=== PATIENT | male | born 1940 | race Caucasian/White ===

== ENCOUNTER 2025-06-22 12:00 | Inpatient (IN) | payer MEDICARE, SELFPAY ==
[2025-06-22] VITALS (8 sets, daily range): BP systolic 91–169; BP diastolic 63–93; BMI 21.5; BMI 20.7
--- NOTE | 2025-06-22 11:14 | ED.SKININJ ---
HPI-Injury
General
Chief Complaint: Skin Problem
Source: patient
Exam Limitations: none
Time Seen by Provider: 06/22/25 10:53
Nursing documentation reviewed up to this point in time: agreed with
History of Present Illness-Injury
Initial Injury comments:
84-year-old male with history of BPH, HLD, neuropathy presents for infected right 2nd toe. Saw Staff Accountant Dr. Wilkes last week and has been on Keflex 500 mg BID since, went back to her yesterday and she instructed him to come to ER for evaluation
as not much improvement. Patient has a prescription pad requesting that Dr. Joshi be notified when patient is here. Patient has had no fevers, he feels well otherwise. Minimal pain in the toe. 'Just a twinge now and then.'
Past History
Past History
ED Past Medical History: Hypercholesterolemia and Other (BPH)
Social History
Tobacco: Former smoker
Alcohol: None
Personal:
Living: with family
Review of Systems
Review of Systems
Allergies reviewed?: Yes
All Other Systems: ROS reviewed and negative except as documented in HPI and ROS
Phy Exam
Physical Exam
Physical Exam:
GENERAL: No acute distress. A&Ox3.
CONSTITUTIONAL: Afebrile.
EYES: clear, conjunctivae normal
ENMT: moist mucus membranes, Pharynx nl
RESPIRATORY: Regular respirations, nonlabored, lungs clear.
CARDIOVASCULAR: Regular rate and rhythm, + murmur, no rubs.
GI: Soft, nontender, normal BS
MUSCULOSKELETAL: Right second toe is flaky, has a thick onychomycosis of the nail, mildly erythematous dry flaky scab on tip. The 3rd toe has minimal erythema. moves with ease. Well perfused.
SKIN: Warm, dry, pink
PSYCH: Normal mood and affect. Well kept, interactive and appropriate
NEUROLOGIC: Awake, alert and oriented. No focal neurological deficits
Course
Orders/Labs/Results
Orders:
Orders
06/22/25 Lunch
Regular
At Your Request: Full Participation
06/22/25 10:11
Foot, Right 3 View [CR Foot - Right Min 3 Views] Urgent
Comment: attention 2nd toe r/o osteo
Reason For Exam: pain, redness
06/22/25 11:49
Complete Blood Count/With Diff Urgent
Comprehensive Metabolic Panel Urgent
06/22/25 11:51
Admit/Transfer Patient As Directed
Co-Sign Provider:
Level of Care: Inpatient admission
Assign to:: Medical/Surgical
Physician / Group: Dr Brizuela
Diagnosis: Cellulitis toe possible OM
Reason for Hospitalization: Cellulitis toe possible OM
Expected length of stay greater than two midnights?: Yes
ELOS- Estimated Length of Stay in days: 2
I certify the patient meets the requirements for IP care: Yes
PRN Pain Medication Management As Directed
May give lesser potent ordered pain med per pt: Yes
preference::
Protocol:: Medication orders for pain may be administered in a
manner that supports deferring to patient preference
when the pt is:
- Requesting an ordered lesser potent pain medication.
Least to most potent pain medications are defined
as: acetaminophen < NSAID < tramadol < opioids
(morphine, oxycodone, hydromorphone).
- Requesting a lesser dose of the same medication IF
ORDERED.
- Requesting a less intrusive route of administration
if both routes are prescribed by the provider (PO <
IV).
06/22/25 11:52
Code Status As Directed
Resuscitation Status: Full Code
06/22/25 11:53
PODIATRY CONSULT Routine
Consulting Provider: Jonn Bush
Was physician already notified: Yes
Reason for consult: Toe infection r/o OM
06/22/25 15:07
Acetaminophen [Tylenol] 650 mg PO Q4HPRN PRN
Bisacodyl [Dulcolax] 10 mg RECTAL [id number] PRN
Docusate W/Senna [Senokot-S] 1 tablet PO BIDPRN PRN
Ketorolac [Toradol] 10 mg IV Q6HPRN PRN
Morphine Sulfate 2 mg IV Q4HPRN PRN
Polyethylene Glycol Powder [Miralax] 17 grams PO DAILYPRN PRN
06/22/25 15:07
Activity As Directed
Activity Level: Out of Bed-Early Mobility
Vital Signs As Directed
Frequency: Per unit guidelines
DX Deep Vein Thrombosis Video Routine
06/22/25 18:00
Enoxaparin Sodium [Lovenox] 40 mg SC QPM
06/23/25 06:00
Basic Metabolic Panel IN AM
Complete Blood Count/With Diff IN AM
Abnormal Lab Results
06/22/25
11:49
WBC 11.8 H 10^3/uL
(4.8-10.8)
RBC 4.16 L 10^6/uL
(4.70-6.10)
Hgb 12.9 L g/dL
(13.0-18.0)
Hct 38.6 L %
(39.0-52.0)
Abs Immat Gran (auto) 0.1 H 10^3/uL
(0-0.05)
Absolute Neuts (auto) 7.9 H 10^3/uL
(1.4-6.5)
Absolute Monos (auto) 0.8 H 10^3/uL
(0.1-0.6)
Absolute Eos (auto) 0.8 H 10^3/uL
(0-0.7)
Immature Gran % 0.6 H %
(0-0.5)
Lymphocytes % 17.8 L %
(20.5-51.1)
Eosinophils % 7.0 H %
(0-6)
BUN 27 H mg/dl
(9-20)
06/22/25 11:49
06/22/25 11:49
Vital Signs
Initial and Last Documented VS:
Initial Vital Signs
Temp Pulse Resp BP Pulse Ox
97.5 F 68 18 169/79 96
06/22/25 10:04 06/22/25 10:04 06/22/25 10:04 06/22/25 10:04 06/22/25 10:04
Last Documented Vital Signs
Temp Pulse Resp BP Pulse Ox
98.7 F 64 17 169/82 99
06/22/25 15:58 06/22/25 15:58 06/22/25 15:58 06/22/25 15:58 06/22/25 15:58
MDM/Problems Addressed
Differential Diagnosis Includes:
Cellulitis, osteomyelitis
MDM/Problems Addressed:
84-year-old male with history of BPH, HLD, neuropathy presents for infected right 2nd toe. Saw Staff Accountant Dr. Wilkes last week and has been on Keflex 500 mg BID since, went back to her yesterday and she instructed him to come to ER for evaluation
as not much improvement. Patient has a prescription pad requesting that Dr. Joshi be notified when patient is here. Patient has had no fevers, he feels well otherwise. Minimal pain in the toe. 'Just a twinge now and then.'
Foot x-ray radiology report read: FINDINGS/IMPRESSION:
Osseous irregularity at the tuft of the second distal phalanx raising concern for acute osteomyelitis in the appropriate clinical setting. Soft tissue swelling about the distal second toe.
No acute fracture or dislocation. Mild joint space narrowing of the first metatarsophalangeal joint, and throughout the interphalangeal joints. Minor hallux valgus. Small plantar calcaneal enthesophyte.
11:[address] Bethesda, pictures sent to him for review, discussed x-ray result, he would like patient admitted, vancomycin, MRI
Hospitalist notified of admission
*Pulse Oximetry
SaO2: 96
Oxygen Mode of Delivery: Room air
Patient hypoxic: not evaluated
*Critical Care Note
Total Time (30-74mins, 75-104mins- exclusive of procedures): Not Applicable
ED Attending Note
-
Portions of this chart may have been created with voice recognition software.� Occasional wrong word or��sound alike� substitutions may have occurred due to the inherent limitations of voice recognition software.
Discharge Plan
Departure
Patient Disposition: Admit
Date of Disposition: 06/22/25
Time of Disposition: 11:44
Admit to: Med/Surg
Presentation/result/management discussed w/ accepting MD/DO: Hospitalist
Condition: Good
Discharge Problem:
Cellulitis of second toe, right
Interventions
Interventions:
*General Assessment Last Done: 06/22/25 10:04
*Neglect/Abuse Screening Last Done: 06/22/25 11:46
*ED Influenza Vaccine History Last Done: 06/22/25 11:46
*Nursing Disposition Last Done: 06/22/25 14:58
ED-Skin Assessment Last Done: 06/22/25 11:46
Discharge Date and Time
Discharge Date/Time: 06/22/25 14:58
--- NOTE | 2025-06-22 11:49 | HPS.HSE ---
Family Physician
-
Family Physician: Alessandro Kohli MD
Chief Complaint
-
Toe
History of Present Illness
Patient 84 years old male with history of hyperlipidemia, peripheral neuropathy, BPH, prediabetes, presented to the hospital with worsening infection of the right second toe. Patient has seen rn chronic as outpatient and he has been treated with
Keflex without significant improvement went back to see rn chronic yesterday and recommended to come to the ER for further evaluation. Patient denies any fevers or chills. He does have increased amount of pain and erythema for over 1 week. Denies
any chest pain or shortness of breath. Denies any nausea vomiting or diarrhea. He had an x-ray of the right foot showing some concerning issues for osteomyelitis. He was referred to hospitalist service for further evaluation.
Medical History
Past Medical History
Past Medical History: Reports Other (Hyperlipidemia, peripheral neuropathy, BPH)
Past Surgical History: Reports None
Social History
Tobacco: Former Smoker
Alcohol: None
Drug: None
Family History
Family History: Not pertinent
Allergies / Home Medications
Allergies reflects when Allergies were last updated in [facility].
Home Medications with original date entered in [facility]
Allergy/Medication List:
Allergies
Allergy/AdvReac Type Severity Reaction Status Date / Time
No Known Allergies Allergy Unverified 06/22/25 10:08
Home Medications
atorvastatin 10 mg tablet 10 mg PO DAILY 06/22/25
doxazosin 4 mg tablet 4 mg PO HS 06/22/25
Review of Systems
-
A 12 point ROS was completed and negative except as noted: Yes
Physical Exam
Vital Signs
Vital Signs
Temp Pulse Resp BP Pulse Ox
97.5 F 68 18 169/79 96
06/22/25 10:04 06/22/25 10:04 06/22/25 10:04 06/22/25 10:04 06/22/25 11:15
Physical exam:
General: Acutely ill
HEENT: Normocephalic, Atraumatic and Moist Mucous Membranes
Respiratory: Clear to Auscultation; Negative Wheezes, Rales or Rhonchi
Cardiac: Regular Rhythm and S1/S2
GI: Soft, Nontender and Nondistended
Musculoskeletal: No Clubbing, No Cyanosis and No Edema. Edema and erythema second toe right foot associated with tenderness.
Neuro: Awake, Alert and Oriented, no neurological deficit
Psych: Calm
Physical Exam
General: Other
Data Reviewed
-
Diagnostic Radiology: Image Personally Visualized and interpreted
Lab Data: Labs Reviewed by me
Impression/Plan
-
IMPRESSION:
84 yo HX HLD, BPH, neuropathy, with infected right 2nd toe not improving after 1 week on Keflex. Patient with worsening cellulitis of the right second toe, concerning for osteomyelitis as well. Patient will need to be during the hospital otherwise
at increased risk of morbidity mortality.
PLAN:
Right second toe cellulitis, rule out osteomyelitis:
IV antibiotics, IV vancomycin
Pain control, Tylenol, Toradol, and morphine as needed
Podiatry consult
Plan for MRI of the right foot
Hyperlipidemia:
Continue statins
BPH:
Continue doxazosin
Check postvoid residual
Prediabetes:
Insulin sliding scale for now
Update hemoglobin A1c
DVT prophylaxis:
Lovenox SQ
CODE STATUS:
Full code
Time spent 75 minutes
[2025-06-22 12:14] LABS: Hematocrit 38.6 % (39.0-52.0); Hemoglobin 12.9 g/dL (13.0-18.0); Mean Corp Hgb Conc. 33.4 g/dL (33.0-37.0); Mean Corpuscular Volume 92.8 fL (80.0-94.0); Nucleated Red Blood Cells % 0 % (-); Platelet Count 181 10^3/uL (130-400); Red Cell Dist. Width 12.8 % (11.5-14.5)
--- NOTE | 2025-06-22 12:25 | PHA.VAN.IN ---
Assessment
- Assessment
Renal Function: Unknown baseline
AUC Dosing Plan
- Dosing Variables
Dosing Weight (kg): 68
Dosing CrCl (ml/min): 53
Vd coefficient (L/kg): 0.7
- Empiric Dosing
Initial / Loading Dose: 1500mg - 06/22 12:46
Maintenance Regimen: Vanc 1000mg Q24H starting 06/23 0600
Estimated AUC (mcg*h/mL): 445
Estimated Peak (mcg*h/mL): 30.6
Estimated Trough (mcg/ml): 10
Estimated Half Life (H): 14.3
- Monitoring
No levels ordered at this time: consider levels in next few days
Pharmacokinetics Vancomycin I
- -
Patient Age: 84
Patient Sex: Male
Vancomycin Day #: 1
Indication: Skin And Soft Tissue
Requesting Provider: Charly Brizuela
Pertinent Antimicrobial Allergies:
NKDA
Height / Weight:
Height 5 ft 10 in
Actual Weight 67.9 kg
- Vital Signs / Lab Results
Temp Pulse Resp BP Pulse Ox
97.5 F 68 18 169/79 96
06/22/25 10:04 06/22/25 10:04 06/22/25 10:04 06/22/25 10:04 06/22/25 11:15
Lab Results - Hematology
06/22/25
11:49
WBC 11.8 H
--- NOTE | 2025-06-22 12:29 | CM ---
CM reviewed chart and orders. Met with patient his Carleen at ED bedside.
Lives in a 2 story home with . No DEE DEE 1 st floor set up
Independent, ambulating without any issues, going [facility] twice a week for balance
Drives
DME none
PCP Dr. Alessandro Kohli
RX plan yes
Pharmacy [facility] on [facility]
no hx of VN nor SNF
DCP is to return back home vs home with outpt PT as needed
CM will continue to follow up with dcp needs
[2025-06-22] MEDS: VANCOCIN 530 MG IV (12:46)
[2025-06-22 12:47] LABS: ALT (SGPT) 24 U/L (0-50); AST (SGOT) 28 U/L (17-59); Albumin 4.1 g/dl (3.5-5.0); Alkaline Phosphatase 77 U/L (38-126); Blood Urea Nitrogen 27 mg/dl (9-20); Calcium 9.4 mg/dl (8.4-10.2); Carbon Dioxide 30 mmol/L (22-30); Chloride 104 mmol/L (98-107); Estimated Creatinine Clearance 53 ml/min; Glucose 80 mg/dl (70-99); Potassium 4.6 mmol/L (3.5-5.1); Sodium 140 mmol/L (135-145); eGFR > 60.00
[2025-06-22 13:01] LABS: Total Protein 6.8 g/dl (6.3-8.2)
--- NOTE | 2025-06-22 15:30 | W.PN.UPDATE ---
Update Note
Progress Note Update
84M concern for OM 2nd toe
- tentative plan for OR tomorrow - 2nd toe amputation, pending MRI results
- NPO midnight tonight
- continue iv abx
- NWB RLE
- encourage elevation 2-3 pillows
- full consult note to follow
[2025-06-22 16:13] LABS: Glucose - Point of Care 103 mg/dl (70-99)
--- NOTE | 2025-06-22 16:40 | PTCARENOTE ---
Pt receiving Vancomycin IV from ED when admitted at 1548. At approximately 1643, called into pt's room. Pt noted to be red on his forehead, face and chest and stated he was itching. Vancomycin immediately stopped and attending and cross coverage
doctors(Dr. Brizuela and Dr. Dior) made aware. Pt given Benadryl 50mg IV x 1 and Vancomycin added as an allergy for the patient. Care ongoing.
--- NOTE | 2025-06-22 16:54 | W.PN.UPDATE ---
Addendum entered and electronically signed by Nanette Dior MD 06/22/25 16:59:
notified by RN that primary attending will reassess in AM. Will hold off Ancef initiation at this time. patient is nontoxic appearing with stable vital signs.
Original Note:
Update Note
Progress Note Update
patient with redness and itching on his head/chest from IV Vanco - Vanco stopped. switched to IV Ancef. Prn Benadryl
[2025-06-22] MEDS: BENADRYL 50 MG IV (17:07)
[2025-06-22] MEDS: LOVENOX 40 MG SC (17:08)
[2025-06-22 21:17] LABS: Glucose - Point of Care 104 mg/dl (70-99)
[2025-06-22] MEDS: CARDURA 4 MG PO (21:25)
[2025-06-23 00:32] LABS: Glucose - Point of Care 84 mg/dl (70-99)
--- NOTE | 2025-06-23 02:28 | DOWNTIME ---
There was a [employer] Downtime on 06/23/2025 from 0100 to 06/23/2025 at 0215. Downtime documentation of patient's care, including medication administrations, has been reconciled in the electronic record per guidelines. Refer to the
patient's paper chart under the miscellaneous tab to see printed paper medication records and downtime forms.
[2025-06-23 06:21] LABS: Glucose - Point of Care 98 mg/dl (70-99)
[2025-06-23 07:55] VITALS: BP 128/68
[2025-06-23 07:55] LABS: Hematocrit 41.5 % (39.0-52.0); Hemoglobin 13.2 g/dL (13.0-18.0); Mean Corp Hgb Conc. 31.8 g/dL (33.0-37.0); Mean Corpuscular Volume 96.7 fL (80.0-94.0); Nucleated Red Blood Cells % 0 % (-); Platelet Count 181 10^3/uL (130-400); Red Cell Dist. Width 12.8 % (11.5-14.5)
[2025-06-23 08:39] LABS: Glycohemoglobin (HgbA1c) 6.1 % (4.0-5.6)
--- NOTE | 2025-06-23 08:39 | W.PN.HOSP.TC ---
Today's Communication/Plan
-
Antibiotics. MRI R Foot
Assessment / Plan
Assessment / Plan
Physical exam:
General: Acutely ill
HEENT: Normocephalic, Atraumatic and Moist Mucous Membranes
Respiratory: Clear to Auscultation; Negative Wheezes, Rales or Rhonchi
Cardiac: Regular Rhythm and S1/S2
GI: Soft, Nontender and Nondistended
Musculoskeletal: No Clubbing, No Cyanosis and No Edema. Edema and erythema second toe right foot associated with tenderness.
Neuro: Awake, Alert and Oriented, no neurological deficit
Psych: Calm
A/P:
Right second toe cellulitis, rule out osteomyelitis:
IV antibiotics, IV vancomycin-had reaction yesterday-see below
Pain control, Tylenol, Toradol, and morphine as needed
Podiatry consult
Plan for MRI of the right foot-still pending
Podiatry recommended to keep n.p.o. for possible procedure
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
Benadryl x 1 today and restart vancomycin at a slower rate today-discussed with attending RN, discussed with patient, and discussed with pharmacy. If he does well no need for further Benadryl but only modification of rate of antibiotic to be given.
Unlikely this reaction to keep him from receiving vancomycin--> will continue to monitor.
Hyperlipidemia:
Continue statins
BPH:
Continue doxazosin
Check postvoid residual
Prediabetes:
Insulin sliding scale for now
Update hemoglobin A1c
DVT prophylaxis:
Lovenox SQ
CODE STATUS:
Full code
Total time spent on today's encounter was 55 minutes which included time spent in counseling the patient/family regarding diagnosis and treatment plan as listed above, goals of care, and symptom management. Case was discussed with nursing staff,
specialists, and care coordinators/case management. All labs and imaging personally reviewed by me. Remainder the time spent in detailed review of previous records, lab data, imaging, and other medical provider documentation.
Anticipated Discharge: 24 - 48 hours
Subjective/Interval History
-
Date of Service: June 23, 2025
Yesterday developed significant rash but no shortness of breath or tongue swelling or hypotension. Foot with some discomfort. Remains afebrile
Objective Data
-
Labs:
Laboratory Results
06/23/25
07:28
WBC 9.2
Hgb 13.2
Hct 41.5
Plt Count 181
Sodium Pending
Potassium Pending
Chloride Pending
Carbon Dioxide Pending
BUN Pending
Creatinine Pending
Glucose Pending
Calcium Pending
Vital Signs:
Vital Signs
Temp Pulse Resp BP Pulse Ox
97 F 73 20 168/93 97
06/22/25 23:11 06/22/25 23:11 06/22/25 23:11 06/22/25 23:11 06/22/25 23:11
[2025-06-23] MEDS: LIPITOR 10 MG PO (08:54)
[2025-06-23 08:57] LABS: Blood Urea Nitrogen 23 mg/dl (9-20); Calcium 8.7 mg/dl (8.4-10.2); Carbon Dioxide 31 mmol/L (22-30); Chloride 105 mmol/L (98-107); Estimated Creatinine Clearance 46 ml/min; Glucose 92 mg/dl (70-99); Potassium 5.0 mmol/L (3.5-5.1); Sodium 138 mmol/L (135-145); eGFR > 60.00
--- NOTE | 2025-06-23 09:26 | PHA.VAN.FU ---
Vancomycin Assessment / Plan
- Assessment
Renal Function: SCR Increasing (slight increase 1--> 1.1)
WBC's are: WNL
In the past 24 hrs, patient has been: Afebrile
- Dosing Plan
Continue: Vanc 1000mg Q24H - infuse over 2 hours (< 10mg/min)
Loading dose infusion stopped yesterday due to infusion reaction. Unclear how much of dose patient received. Will start with maintenance dosing today.
- Monitoring Plan
No level(s) ordered at this time: consider levels in next few days
- Follow Up
Pharmacy will continue to follow.
Vancomycin Follow UP
- -
Patient Age: 84
Patient Sex: Male
Vancomycin Day #: 2
Indication: Skin And Soft Tissue
Requesting Provider: Charly Brizuela
Pertinent Antimicrobial Allergies:
NKDA
Height / Weight:
Height 5 ft 10 in
Actual Weight 65.516 kg
Pertinent Past Medical History: vancomycin infusion reaction
- Vital Signs / Lab Results
Temp Pulse Resp BP Pulse Ox
97.6 F 73 16 128/68 95
06/23/25 07:55 06/23/25 07:55 06/23/25 07:55 06/23/25 07:55 06/23/25 07:55
Lab Results - Hematology
06/22/25 06/23/25
11:49 07:28
WBC 11.8 H 9.2
Lab Results - Chemistry
06/22/25 06/23/25
11:49 07:28
BUN 27 H 23 H
Creatinine 1.0 1.1
Estimated Creat Clear 53 46
Albumin 4.1
[2025-06-23] MEDS: BENADRYL 50 MG IV (10:25)
[2025-06-23] MEDS: VANCOCIN 200 IV (11:04)
--- NOTE | 2025-06-23 11:12 | CM ---
CM reviewed chart, patient seen bedside.
Patient for tentative OR for second toe amputation.
Continue IV antibiotics.
Patient will require PT/OT evals post OR
CM will continue to follow for all d/c planning needs.
Plan; home with , needs dependent on PT/OT evals post OR
[2025-06-23 12:33] LABS: Glucose - Point of Care 108 mg/dl (70-99)
--- NOTE | 2025-06-23 12:45 | CON.SURG ---
Surgical Consultation
-
Chief Complaint
-
Right 2nd toe
History of Present Illness
Patient 84 years old male with history of hyperlipidemia, peripheral neuropathy, BPH, prediabetes, presented to the hospital with worsening infection of the right second toe. Patient has seen lay health advocate as outpatient and he has been treated with
Keflex without significant improvement went back to see lay health advocate yesterday and recommended to come to the ER for further evaluation. Patient denies any fevers or chills. He does have increased amount of pain and erythema for over 1 week. Denies
any chest pain or shortness of breath. Denies any nausea vomiting or diarrhea. He had an x-ray of the right foot showing some concerning issues for osteomyelitis. He was referred to hospitalist service for further evaluation.
Medical History
Past Medical History
Past Medical History: Reports Other (Hyperlipidemia, peripheral neuropathy, BPH)
Past Surgical History: Reports None
Social History
Tobacco: Former Smoker
Alcohol: None
Drug: None
Family History
Family History: Not pertinent
Allergies / Home Medications
Allergies reflects when Allergies were last updated in [facility].
Home Medications with original date entered in [facility]
Allergy/Medication List:
Allergies
Allergy/AdvReac Type Severity Reaction Status Date / Time
No Known Allergies Allergy Unverified 06/22/25 10:08
Home Medications
atorvastatin 10 mg tablet 10 mg PO DAILY 06/22/25
doxazosin 4 mg tablet 4 mg PO HS 06/22/25
Review of Systems
-
A 12 point ROS was completed and negative except as noted: Yes
Physical Exam
Vital Signs
Vital Signs
Temp Pulse Resp BP Pulse Ox
97.5 F 68 18 169/79 96
06/22/25 10:04 06/22/25 10:04 06/22/25 10:04 06/22/25 10:04 06/22/25 11:15
Physical exam:
General: Acutely ill
HEENT: Normocephalic, Atraumatic and Moist Mucous Membranes
Respiratory: Clear to Auscultation; Negative Wheezes, Rales or Rhonchi
Cardiac: Regular Rhythm and S1/S2
GI: Soft, Nontender and Nondistended
Musculoskeletal: No Clubbing, No Cyanosis and No Edema. Edema and erythema second toe right foot associated with tenderness.
Neuro: Awake, Alert and Oriented, no neurological deficit
Psych: Calm
Physical Exam
General: Other
RLE Exam
-DP/PT pulses 2/4, capillary refill < 3 seconds
-Left 2nd toe erythema and edema with no obvious open wounds, no vega purulence crepitus or fluctuance
Data Reviewed
-
Diagnostic Radiology: Image Personally Visualized and interpreted
Lab Data: Labs Reviewed by me
Impression/Plan
-
IMPRESSION:
84 yo HX HLD, BPH, neuropathy, with infected right 2nd toe not improving after 1 week on Keflex. Patient with worsening cellulitis of the right second toe, concerning for osteomyelitis
-Left 2nd toe concern for osteomyelitis clinically and radiographically
-Patient has failed oral antibiotics
-Recommend IV antibiotics and await results of right foot MRI for further evaluation and treatment options
-Heel WB to right foot in a surgical shoe
--- NOTE | 2025-06-23 12:57 | W.PN.UPDATE ---
Update Note
Progress Note Update
84M concern for OM R 2nd toe, faint pedal pulse
- tentative plan for OR tomorrow() - 2nd toe amputation, pending MRI results
- NPO midnight tonight
- resume diet today
- NIVS ordered
- continue iv abx
- NWB RLE
- encourage elevation 2-3 pillows
- will monitor while inpatient
[2025-06-23 14:50] LABS: Glucose - Point of Care 82 mg/dl (70-99)
[2025-06-23 15:35] VITALS: BP 120/67
[2025-06-23 17:34] LABS: Glucose - Point of Care 143 mg/dl (70-99)
[2025-06-23] MEDS: TYLENOL 650 MG PO (17:57)
[2025-06-23] MEDS: LOVENOX 40 MG SC (17:58)
[2025-06-23 21:17] LABS: Glucose - Point of Care 110 mg/dl (70-99)
[2025-06-23] MEDS: CARDURA 4 MG PO (22:22)
[2025-06-24] MEDS: VANCOCIN IV (06:27)
[2025-06-24 07:00] VITALS: BP 118/72
[2025-06-24] MEDS: LIPITOR 10 MG PO (07:47)
[2025-06-24] MEDS: VANCOCIN 200 IV (07:48)
[2025-06-24 07:53] LABS: Glucose - Point of Care 115 mg/dl (70-99)
[2025-06-24 08:39] LABS: Hematocrit 42.8 % (39.0-52.0); Hemoglobin 13.8 g/dL (13.0-18.0); Mean Corp Hgb Conc. 32.2 g/dL (33.0-37.0); Mean Corpuscular Volume 96.0 fL (80.0-94.0); Nucleated Red Blood Cells % 0 % (-); Platelet Count 197 10^3/uL (130-400); Red Cell Dist. Width 12.9 % (11.5-14.5)
[2025-06-24 09:28] LABS: Blood Urea Nitrogen 24 mg/dl (9-20); Calcium 9.1 mg/dl (8.4-10.2); Carbon Dioxide 26 mmol/L (22-30); Chloride 104 mmol/L (98-107); Estimated Creatinine Clearance 42 ml/min; Glucose 113 mg/dl (70-99); Potassium 4.5 mmol/L (3.5-5.1); Sodium 134 mmol/L (135-145); eGFR 59.63
--- NOTE | 2025-06-24 11:08 | W.PN.HOSP.TC ---
Today's Communication/Plan
-
IV antibiotics. KARTHIKEYAN. Podiatry reeval
Assessment / Plan
Assessment / Plan
Physical exam:
General: Acutely ill
HEENT: Normocephalic, Atraumatic and Moist Mucous Membranes
Respiratory: Clear to Auscultation; Negative Wheezes, Rales or Rhonchi
Cardiac: Regular Rhythm and S1/S2
GI: Soft, Nontender and Nondistended
Musculoskeletal: No Clubbing, No Cyanosis and No Edema. Edema and erythema second toe right foot associated with tenderness.
Neuro: Awake, Alert and Oriented, no neurological deficit
Psych: Calm
A/P:
Right second toe cellulitis, rule out osteomyelitis:
IV antibiotics, IV vancomycin-tolerating well
Pain control, Tylenol, Toradol, and morphine as needed
Podiatry consult-discussed with podiatry and possible amputation pending KARTHIKEYAN test.
MRI shows evidence of osteomyelitis
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
Restarted vancomycin at a slower rate and tolerating well--> continue IV vancomycin for now.
Hyperlipidemia:
Continue statins
BPH:
Continue doxazosin
Check postvoid residual
Prediabetes:
Insulin sliding scale for now
Update hemoglobin A1c and it is 6.1
DVT prophylaxis:
Lovenox SQ
CODE STATUS:
Full code
Total time spent on today's encounter was 55 minutes which included time spent in counseling the patient/family regarding diagnosis and treatment plan as listed above, goals of care, and symptom management. Case was discussed with nursing staff,
specialists, and care coordinators/case management. All labs and imaging personally reviewed by me. Remainder the time spent in detailed review of previous records, lab data, imaging, and other medical provider documentation.
Anticipated Discharge: 24 - 48 hours
Subjective/Interval History
-
Date of Service: June 24, 2025
Foot discomfort. No nausea vomiting diarrhea. Afebrile.
Objective Data
-
Labs:
Laboratory Results
06/24/25
07:49
WBC 9.8
Hgb 13.8
Hct 42.8
Plt Count 197
Sodium 134 L
Potassium 4.5
Chloride 104
Carbon Dioxide 26
BUN 24 H
Creatinine 1.2
Glucose 113 H
Calcium 9.1
Vital Signs:
Vital Signs
Temp Pulse Resp BP Pulse Ox
97.6 F 76 15 118/72 95
06/24/25 07:00 06/24/25 07:00 06/24/25 07:00 06/24/25 07:00 06/24/25 07:00
I&O
06/23/25 06/24/25 06/25/25
06:59 06:59 06:59
Intake Total 1020 / 1020
Balance 1020 / 1020
--- NOTE | 2025-06-24 11:34 | PHA.VAN.FU ---
Vancomycin Assessment / Plan
- Assessment
Renal Function: SCR Increasing (slight increasing trend)
WBC's are: WNL
In the past 24 hrs, patient has been: Afebrile
- Dosing Plan
Continue: Vanc 1000mg Q24H
- Monitoring Plan
No level(s) ordered at this time: consider levels in next few days
- Follow Up
Pharmacy will continue to follow.
Vancomycin Follow UP
- -
Patient Age: 84
Patient Sex: Male
Vancomycin Day #: 3
Indication: Skin And Soft Tissue
Requesting Provider: Charly Brizuela
Pertinent Antimicrobial Allergies:
NKDA
Height / Weight:
Height 5 ft 10 in
Actual Weight 65.516 kg
Pertinent Past Medical History: vancomycin infusion reaction
- Vital Signs / Lab Results
Temp Pulse Resp BP Pulse Ox
97.6 F 76 15 118/72 95
06/24/25 07:00 06/24/25 07:00 06/24/25 07:00 06/24/25 07:00 06/24/25 07:00
Lab Results - Hematology
06/22/25 06/23/25 06/24/25
11:49 07:28 07:49
WBC 11.8 H 9.2 9.8
Lab Results - Chemistry
06/22/25 06/23/25 06/24/25
11:49 07:28 07:49
BUN 27 H 23 H 24 H
Creatinine 1.0 1.1 1.2
Estimated Creat Clear 53 46 42
Albumin 4.1
[2025-06-24 12:45] LABS: Glucose - Point of Care 101 mg/dl (70-99)
[2025-06-24 15:35] VITALS: BP 117/58
[2025-06-24 17:18] LABS: Glucose - Point of Care 177 mg/dl (70-99)
--- NOTE | 2025-06-24 17:18 | CM ---
Possible toe amputation tomorrow. Will follow for DC needs post-op
Plan: TBD
--- NOTE | 2025-06-24 17:42 | W.PN.SURGUPD ---
Surgical Update
Surgical Update
84 yo M with 2nd toe infection
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
-KARTHIKEYAN/PVRs within normal limits
-Please make NPO after midnight
-Plan for OR tomorrow
[2025-06-24] MEDS: LOVENOX 40 MG SC (17:58)
[2025-06-24 21:28] LABS: Glucose - Point of Care 97 mg/dl (70-99)
[2025-06-24] MEDS: CARDURA 4 MG PO (23:08)
[2025-06-24 23:33] VITALS: BP 132/75
[2025-06-25 05:12] LABS: Glucose - Point of Care 108 mg/dl (70-99)
[2025-06-25] MEDS: VANCOCIN 200 IV (05:34)
[2025-06-25 07:17] VITALS: BP 126/64
[2025-06-25 08:37] LABS: Hematocrit 38.9 % (39.0-52.0); Hemoglobin 13.0 g/dL (13.0-18.0); Mean Corp Hgb Conc. 33.4 g/dL (33.0-37.0); Mean Corpuscular Volume 93.3 fL (80.0-94.0); Nucleated Red Blood Cells % 0 % (-); Platelet Count 176 10^3/uL (130-400); Red Cell Dist. Width 12.8 % (11.5-14.5)
[2025-06-25 08:54] LABS: Blood Urea Nitrogen 24 mg/dl (9-20); Calcium 8.7 mg/dl (8.4-10.2); Carbon Dioxide 26 mmol/L (22-30); Chloride 105 mmol/L (98-107); Estimated Creatinine Clearance 46 ml/min; Glucose 114 mg/dl (70-99); Potassium 4.2 mmol/L (3.5-5.1); Sodium 137 mmol/L (135-145); eGFR > 60.00
--- NOTE | 2025-06-25 09:01 | PHA.VAN.FU ---
Vancomycin Assessment / Plan
- Assessment
Renal Function: Stable
WBC's are: WNL
In the past 24 hrs, patient has been: Afebrile
- Dosing Plan
Continue: Vanc 1000mg Q24H
- Monitoring Plan
No level(s) ordered at this time: consider levels in next few days
- Follow Up
Pharmacy will continue to follow.
Vancomycin Follow UP
- -
Patient Age: 84
Patient Sex: Male
Vancomycin Day #: 4
Indication: Skin And Soft Tissue
Requesting Provider: Charly Brizuela
Pertinent Antimicrobial Allergies:
NKDA
Height / Weight:
Height 5 ft 10 in
Actual Weight 65.516 kg
Pertinent Past Medical History: vancomycin infusion reaction
- Vital Signs / Lab Results
Temp Pulse Resp BP Pulse Ox
97.4 F 74 18 126/64 94
06/25/25 07:17 06/25/25 07:17 06/25/25 07:17 06/25/25 07:17 06/25/25 07:17
Lab Results - Hematology
06/22/25 06/23/25 06/24/25
11:49 07:28 07:49
WBC 11.8 H 9.2 9.8
06/25/25
07:47
WBC 9.6
Lab Results - Chemistry
06/22/25 06/23/25 06/24/25
11:49 07:28 07:49
BUN 27 H 23 H 24 H
Creatinine 1.0 1.1 1.2
Estimated Creat Clear 53 46 42
Albumin 4.1
06/25/25
07:47
BUN 24 H
Creatinine 1.1
Estimated Creat Clear 46
Albumin
[2025-06-25] MEDS: LIPITOR 10 MG PO (09:27)
--- NOTE | 2025-06-25 11:22 | W.PN.HOSP.TC ---
Today's Communication/Plan
-
Antibiotics. Plan for toe amputation
Assessment / Plan
Assessment / Plan
Physical exam:
General: Acutely ill
HEENT: Normocephalic, Atraumatic and Moist Mucous Membranes
Respiratory: Clear to Auscultation; Negative Wheezes, Rales or Rhonchi
Cardiac: Regular Rhythm and S1/S2
GI: Soft, Nontender and Nondistended
Musculoskeletal: No Clubbing, No Cyanosis and No Edema. Edema and erythema second toe right foot associated with tenderness.
Neuro: Awake, Alert and Oriented, no neurological deficit
Psych: Calm
A/P:
Right second toe cellulitis, rule out osteomyelitis:
IV antibiotics, IV vancomycin-tolerating well
Pain control, Tylenol, Toradol, and morphine as needed
Podiatry consult appreciated
KARTHIKEYAN negative for issues with circulation
MRI shows evidence of osteomyelitis
Plan for amputation by podiatry today
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
Restarted vancomycin at a slower rate and tolerating well--> continue IV vancomycin for now.
Hyperlipidemia:
Continue statins
BPH:
Continue doxazosin
Check postvoid residual
Prediabetes:
Insulin sliding scale for now
Update hemoglobin A1c and it is 6.1
DVT prophylaxis:
Lovenox SQ
CODE STATUS:
Full code
Total time spent on today's encounter was 35 minutes which included time spent in counseling the patient/family regarding diagnosis and treatment plan as listed above, goals of care, and symptom management. Case was discussed with nursing staff,
specialists, and care coordinators/case management. All labs and imaging personally reviewed by me. Remainder the time spent in detailed review of previous records, lab data, imaging, and other medical provider documentation.
Anticipated Discharge: Within 24 hours
Subjective/Interval History
-
Date of Service: June 25, 2025
Complains of foot pain. No chest pain or shortness of breath nausea or vomiting. Afebrile
Objective Data
-
Labs:
Laboratory Results
06/25/25
07:47
WBC 9.6
Hgb 13.0
Hct 38.9 L
Plt Count 176
Sodium 137
Potassium 4.2
Chloride 105
Carbon Dioxide 26
BUN 24 H
Creatinine 1.1
Glucose 114 H
Calcium 8.7
Vital Signs:
Vital Signs
Temp Pulse Resp BP Pulse Ox
97.4 F 74 18 126/64 94
06/25/25 07:17 06/25/25 07:17 06/25/25 07:17 06/25/25 07:17 06/25/25 07:17
I&O
06/24/25 06/25/25 06/26/25
06:59 06:59 06:59
Intake Total 1020 / 1020 1020 / 1020
Balance 1020 / 1020 1020 / 1020
[2025-06-25 11:52] LABS: Glucose - Point of Care 112 mg/dl (70-99)
--- NOTE | 2025-06-25 14:37 | CM ---
CM reviewed chart, care ongoing.
Patient for OR today.
Watch for PT/OT orders post-op.
CM will continue to follow.
Plan; OR today, plan TBD post-op
--- NOTE | 2025-06-25 16:11 | W.PN.SURGUPD ---
Surgical Update
Surgical Update
84 yo M s/p right partial 2nd toe amputation
-No further surgical plans
-F/u 1x culture, 2x pathology (2nd toe, clean margin)
-Continue PO antibiotics for 7-10 days
-WBAT in forefoot offloading shoe
-OK for DC
-Follow up in office in 2 weeks
[2025-06-25 16:30] VITALS: BP 119/59
--- NOTE | 2025-06-25 16:31 | W.PN.UPDATE ---
Update Note
Progress Note Update
84M s/p R partial 2nd toe amputation
- NWB RLE 24hrs, may transition to Partial weight bearing to heel in surgical shoe tomorrow morning
- Dressings C/D/I
- elevate RLE on 2-3 pillows
- can transition to po abx
-- wound cx x1, biopsy x2 (2nd toe and CM)
- will reassess on AM rounds.
[2025-06-25 16:39] LABS: Glucose - Point of Care 99 mg/dl (70-99)
--- NOTE | 2025-06-25 16:43 | SUR.PHASEI ---
Rec'd sleepy in bed awake, IV infusing well, R leg elevated on pillow marcela well, denies c/o
[2025-06-25 16:45] VITALS: BP 136/73
--- NOTE | 2025-06-25 16:49 | SUR.PHASEI ---
Alert, HOB elevated mid fowlers, requesting to eat, reassured
[2025-06-25 17:20] VITALS: BP 148/78
--- NOTE | 2025-06-25 17:34 | PTCARENOTE ---
Received paytient from PACU at 1715. Patient AAOx3, no c/o pain, right foot post op dressing covered with nadya wrap, CDI, elevated on 2 pillows. Patient tolerating sips of water. patient ordering dinner now, call barnhart in reach. patient made aware
that he is non weight bearing on the Right foot until his off loading shoe is delivered from [facility]. [facility] was notified and shoe size given to them (size 10).
[2025-06-25] MEDS: LOVENOX 40 MG SC (18:13)
[2025-06-25 21:05] VITALS: BP 125/68
[2025-06-25] MEDS: CARDURA 4 MG PO (21:05)
[2025-06-25 21:35] LABS: Glucose - Point of Care 163 mg/dl (70-99)
[2025-06-25 23:00] VITALS: BP 124/64
[2025-06-26] MEDS: VANCOCIN 200 IV (06:22)
[2025-06-26 07:45] VITALS: BP 118/58
[2025-06-26 08:52] LABS: Glucose - Point of Care 131 mg/dl (70-99)
[2025-06-26] MEDS: VIBRAMYCIN 100 MG PO (08:53)
[2025-06-26] MEDS: LIPITOR 10 MG PO (08:53)
--- NOTE | 2025-06-26 10:21 | W.PN.HOSP.TC ---
Today's Communication/Plan
-
Postop care
Assessment / Plan
Assessment / Plan
Physical exam:
General: Acutely ill
HEENT: Normocephalic, Atraumatic and Moist Mucous Membranes
Respiratory: Clear to Auscultation; Negative Wheezes, Rales or Rhonchi
Cardiac: Regular Rhythm and S1/S2
GI: Soft, Nontender and Nondistended
Musculoskeletal: No Clubbing, No Cyanosis and No Edema. Postop findings on R foot.
Neuro: Awake, Alert and Oriented, no neurological deficit
Psych: Calm
A/P:
Right second toe cellulitis and osteomyelitis:
Status post right partial second toe amputation by podiatry on 06/25
Change IV antibiotics to oral antibiotics today to complete 7 days course
Patient Relations Director recommend special boots and PT OT eval pending--> discharge planning once boots are here and PT eval. marketing support manager for discharge disposition as well.
Prior to today:
IV antibiotics, IV vancomycin-tolerated well
Pain control, Tylenol, Toradol, and morphine as needed
Podiatry consult appreciated
KARTHIKEYAN negative for issues with circulation
MRI shows evidence of osteomyelitis
Plan for amputation by podiatry today
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
Restarted vancomycin at a slower rate and tolerated quite well.
Hyperlipidemia:
Continue statins
BPH:
Continue doxazosin
Check postvoid residual
Prediabetes:
Insulin sliding scale for now
Update hemoglobin A1c and it is 6.1
DVT prophylaxis:
Lovenox SQ
CODE STATUS:
Full code
Total time spent on today's encounter was 35 minutes which included time spent in counseling the patient/family regarding diagnosis and treatment plan as listed above, goals of care, and symptom management. Case was discussed with nursing staff,
specialists, and care coordinators/case management. All labs and imaging personally reviewed by me. Remainder the time spent in detailed review of previous records, lab data, imaging, and other medical provider documentation.
Anticipated Discharge: 24 - 48 hours
Subjective/Interval History
-
Date of Service: June 26, 2025
No nausea vomiting or diarrhea. Afebrile. Postop discomfort foot today
Objective Data
-
Vital Signs:
Vital Signs
Temp Pulse Resp BP Pulse Ox
97.5 F 67 18 118/58 94
06/26/25 07:45 06/26/25 07:45 06/26/25 07:45 06/26/25 07:45 06/26/25 07:45
I&O
06/25/25 06/26/25 06/27/25
06:59 06:59 06:59
Intake Total 1020 / 1020 540 / 540
Output Total 350 / 350
Balance 1020 / 1020 190 / 190
--- NOTE | 2025-06-26 11:23 | OR.RPT ---
Operative Report
Operative Report
Operative Report
Patient Name: Raymond Lieberman

Date of Surgery: 08/25/2025
Surgeon: Jonn Bush DPM
Assistants: Jonn Muhammad DPM
Anesthesia: MAC with 10ccs of 0.5% bupivacaine plain
Preoperative Diagnosis:
Right second toe infection
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
Postoperative Diagnosis:
Right second toe infection
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
Procedure Performed:
Right partial second toe amputation at the level of the proximal interphalangeal joint CPT 48652
Specimens:
Right second toe distal portion � sent for culture and pathology
Head of right second proximal phalanx � sent for pathology as clean bone margin
Estimated Blood Loss: Minimal
Hemostasis: Anatomic dissection
Implants: None
Drains: None
Complications: None
Indications for Procedure
The patient presented with a nonhealing right second toe infection that failed to respond to oral antibiotic therapy. MRI imaging confirmed osteomyelitis of the distal phalanx of the right second toe. After discussion of risks, benefits, and
alternatives including continued conservative care versus surgical intervention, the patient elected to proceed with partial amputation of the toe to remove all infected bone and tissue.
Description of Procedure
The patient was brought to the operating room and placed in the supine position. After adequate anesthesia was achieved, the right foot was prepped and draped in the usual sterile fashion.
Attention was directed to the right second toe, where a circumferential incision was made at the level of the proximal interphalangeal joint. A fishmouth-type incision was made using a #15 blade, extending down through skin and subcutaneous tissue
to the level of the joint capsule. Dissection was carried down carefully to expose the proximal interphalangeal joint.
The joint was identified and disarticulated sharply. The distal portion of the toe, including the distal and middle phalanges, was removed and passed off the field as a specimen for microbiologic culture. The head of the proximal phalanx was then
resected using a sagittal saw to obtain a clean bony margin, which was sent separately for pathology.
The wound bed was thoroughly irrigated with copious sterile saline solution. All necrotic or devitalized tissue was excised until healthy, viable tissue and bleeding bone were encountered. There was no evidence of purulence or residual infection at
the completion of debridement.
The wound was then primarily closed in layered fashion using 3-0 Vicryl for deep closure and 3-0 Prolene for skin approximation. A sterile soft dressing was applied.
Disposition
The patient tolerated the procedure well and was transported to the recovery area in stable condition with intact vascular status to the remaining toes of the right foot.
Postoperative Plan:
Maintain dressing clean, dry, and intact.
Partial weight-bearing to heel with postoperative shoe.
Continue antibiotics pending culture and pathology results.
Follow-up in clinic in 1 week for wound check and review of culture/pathology findings.
--- NOTE | 2025-06-26 11:53 | W.PN.UPDATE ---
Update Note
Progress Note Update
84M s/p R partial 2nd toe amputation
- Partial weight bearing to right heel in surgical shoe
- Dressings C/D/I
- elevate RLE on 2-3 pillows
- can transition to po abx
-- wound cx x1, biopsy x2 (2nd toe and CM)
- stable for dc to follow up in office with myself, Eleazar or Tushar at [facility], patient prefers [place] office.
[2025-06-26 11:57] LABS: Glucose - Point of Care 244 mg/dl (70-99)
[2025-06-26] MEDS: KEFLEX 500 MG PO ×2 (12:34→16:40)
[2025-06-26 15:00] VITALS: BP 133/65
[2025-06-26 15:50] VITALS: BP 120/67; PULSE 83
[2025-06-26 15:55] LABS: Glucose - Point of Care 103 mg/dl (70-99)
[2025-06-26 16:10] VITALS: BP 120/67; PULSE 83
--- NOTE | 2025-06-26 16:11 | CM ---
Addendum entered by Yesenia Patel 06/26/25 16:14:
IMM benefit explained; form signed @ [id number]
Addendum entered by Yesenia Patel 06/26/25 16:14:
will transport home
Original Note:
Met with patient to discuss discharge plan; explained that PT recommended home health services; patient agreeable; agency options identified; preference is [facility]; referral sent via [facility]
Plan: Discharge to home with home health services
--- NOTE | 2025-06-26 16:19 | W.DCSUMMARY ---
Discharge Summary
Discharge Data
Date of Admission: 06/22/25
Date of Discharge: 06/26/25
Total time spent discharging patient (in min): 32
-
Pending Results: No
Hospital Course
Patient 84 years old male with history of prediabetes came into the hospital with right second toe worsening infection and found to have osteomyelitis. Patient was treated with oral antibiotic as outpatient without significant improvement so he was
sent over to the hospital. Podiatry consulted. Patient was placed on IV antibiotics. He had an MRI that confirmed that he had osteomyelitis. Car Pick Up Driver took him to the OR and they did a right partial second toe amputation. Podiatry recommended
offloading shoe. PT evaluated the patient postop and recommended home health. Patient has remained hemodynamically stable and afebrile. He will be discharged in relatively stable condition today.
Discharge duration: 32 minutes
Discharge Plan
-
Patient Disposition: Home with Home Care
Discharge Diagnosis/Procedures: Right second toe osteomyelitis status post partial right second toe amputation. 'red man' syndrome from vancomycin. Prediabetes.
Diet: Diabetic, Carb Controlled
Activity: Other activity
Additional Activity: As instructed by Podiatry.
Blood Work: Please PCP to order CBC, BMP within 1 week
Referrals:
Jonn Bush MD [Active, Podiatry] - in one to two weeks
Alessandro Kohli MD [Family Provider, Family Practice] - in less than 1 week
Prescriptions:
New
acetaminophen 325 mg Tablet
650 mg PO Q4HPRN PRN (Reason: mild pain/LADD/temp> 100.4F) Qty: 20 0RF
doxycycline hyclate 100 mg Capsule
100 mg PO Q12 7 Days Qty: 14 0RF
cephalexin 500 mg Capsule
500 mg PO QID 7 Days Qty: 28 0RF
Continued
atorvastatin 10 mg tablet
10 mg PO DAILY
doxazosin 4 mg tablet
4 mg PO HS
therapeutic multivitamin Tablet
1 tab PO DAILY
mupirocin 2 % ointment
1 applic TOPICAL BID
Patient Comments:
apply to toe
garlic Tablet
2 tab PO DAILY
cholecalciferol (vitamin D3) 25 mcg (1,000 unit) Tablet
25 mcg PO DAILY
calcium 26-magnesium 15-zinc 167 mg calcium- 83 mg-5 mg Capsule
1 cap PO DAILY
Beets
1 tab PO DAILY
Discontinued
cephalexin 500 mg capsule
500 mg PO BID
Discharge Orders:
Discharge Patient (As Directed); Ordered 06/26/25
Ordered By: Raheel Brizuela
Discharge Date and Time
Discharge Date/Time: 06/26/25 17:37
Print Language: TAJIK
== END 2025-06-26 17:37 | disposition home health service (06) | DRG 505 ==
LOC: 4 WEST ACU 12:00
PROVIDERS: Registered Nurse; ADMITTING PHYSICIAN Hospitalist; CONSULT PHYSICIAN Student in an Organized Health Care Education/Training Program; EMERGENCY PHYSICIAN Emergency Medicine; FAMILY PHYSICIAN Family Medicine; OTHER PHYSICIAN Student in an Organized Health Care Education/Training Program
PROC: 0Y6R0Z1 Detachment at Right 2nd Toe, High, Open Approach (ICD-10-PCS; 2025-06-25)
DX: M86.171 Other acute osteomyelitis, right ankle and foot (principal); L03.031 Cellulitis of right toe; E78.5 Hyperlipidemia, unspecified; G62.9 Polyneuropathy, unspecified; N40.0 Benign prostatic hyperplasia without lower urinary tract symptoms; Z87.891 Personal history of nicotine dependence; R73.03 Prediabetes; T36.8X5A Adverse effect of other systemic antibiotics, initial encounter; L27.0 Generalized skin eruption due to drugs and medicaments taken internally; Z79.899 Other long term (current) drug therapy
CPT/HCPCS: 73630; 73723; 80048; 80053; 82962; 83036; 85025; 87070; 87075; 87205; 88304; 88305; 88311; 93922; 93925; 96374; 97110; 97161; 97167; 99284; A9575